=== PATIENT | male | born 1960 | race Caucasian/White ===

== ENCOUNTER 2020-12-31 13:59 | Emergency (ER) | payer OTHER ==
[2021-03-27] MEDS ORDERED: PROPAFENONE HC325 MG PO (13:09)
[2021-03-27] MEDS ORDERED: METOPROLOL SUCC25 MG PO (13:09)
[2021-03-27] MEDS ORDERED: ECOTRIN81 MG PO (13:10)
[2021-03-27] MEDS ORDERED: LEVOFLOXACIN500 MG PO (14:51)
[2021-03-27] MEDS ORDERED: CLINDAMYCIN HC300 MG PO (14:51)
[2021-03-27] MEDS ORDERED: HYDROCODON-ACE1 EAC4 PO (14:51)
== END 2020-12-31 16:50 | disposition left against medical advice (07) ==
LOC: ER1 13:59
DX: Z53.21 Procedure and treatment not carried out due to patient leaving prior to being seen by health care provider (principal)

== ENCOUNTER → 2021-03-25 | Outpatient (CLI) | payer OTHER ==
[~2021-03-25] MED LIST: CLINDAMYCIN HC300 MG PO; ECOTRIN81 MG PO; HYDROCODON-ACE1 EAC4 PO; LEVOFLOXACIN500 MG PO; METOPROLOL SUCC25 MG PO; PROPAFENONE HC325 MG PO
[2021-03-25 10:10] LABS: HEMOGLOBIN 15.2 gm/dl (14.0-17.5); RED BLOOD COUNT 4.97 M/UL (4.20-5.50); WHITE BLOOD COUNT 5.9 K/UL (4.5-11.0)
== END ==
LOC: LAB 09:08
PROVIDERS: Internal Medicine Cardiovascular Disease
DX: R00.2 Palpitations (principal); I47.2 Ventricular tachycardia; R42 Dizziness and giddiness; I48.0 Paroxysmal atrial fibrillation
CPT/HCPCS: 36415; 71046; 80048; 85025

== ENCOUNTER → 2021-03-27 | Outpatient (CLI) | payer OTHER | LOC: CATH 12:23 | DX: Z45.010 Encounter for checking and testing of cardiac pacemaker pulse generator [battery] (principal); I49.5 Sick sinus syndrome; I48.0 Paroxysmal atrial fibrillation; G47.33 Obstructive sleep apnea (adult) (pediatric); Z79.82 Long term (current) use of aspirin; Z79.899 Other long term (current) drug therapy | CPT/HCPCS: 33213; 99152; 99153; C1785; J1200; J2250; J3010; J3370; J7040; J7050 ==